=== PATIENT | male | born 1995 ===

== ENCOUNTER → 2022-09-07 | Outpatient (CLI) | payer SELFPAY ==
[2022-09-08 07:11] LABS: HIV AB/P24 AG SCREEN Non Reactive (Non Reactive)
[2022-09-08 09:11] LABS: HBSAG SCREEN Negative (Negative); HCV AB Non Reactive (Non Reactive); HEP A AB, IGM Negative (Negative); HEP B CORE AB, IGM Negative (Negative)
== END | disposition home or self-care (01) ==
LOC: LAB 16:35 → LAB SHORT 16:35
PROVIDERS: Physician Assistant
DX: Z20.2 Contact with and (suspected) exposure to infections with a predominantly sexual mode of transmission (principal)
CPT/HCPCS: 80074; 86592; 87389